=== PATIENT | male | born 2000 | race Caucasian/White ===

== ENCOUNTER 2022-07-30 06:50 | Emergency (ER) | payer OTHER ==
[~2022-07-30] VITALS: Ht 170.2 cm; Wt 70.3 kg
[2022-07-30 07:02] VITALS: BP 119/73
--- NOTE | 2022-07-30 07:06 | NUR ---
TO LOBBY A/W BED AMBULATORY
--- NOTE | 2022-07-30 07:12 | NUR ---
BIB SELF C/O 02/23 GEN ABD PAIN, CHILLS, DIARRHEA, WEAK, FATIQUE STARTED LAST NIGHT. DENIES N/V; SKIN IS PINK/WARM/DRY; ABD SOFT. AAOX4 WITH EVEN AND STEADY GAIT; LUNGS CLEAR BL; HR EVEN AND REGULAR; PT DENIES ANY FEVER, CP, SOB, OR COUGH AT THIS TIME.
--- NOTE | 2022-07-30 07:22 | NUR ---
PT AMB TO BED 5.
--- NOTE | 2022-07-30 07:35 | NUR ---
Dr. Orozco evaluating patient at bedside.
[2022-07-30] MEDS ORDERED: DICYCLOMINE 20 MG/2 ML VIAL IM ONE (08:05)
[2022-07-30] MEDS ORDERED: BEN10 PO (08:33)
[2022-07-30 08:40] VITALS: BP 111/71
--- NOTE | 2022-07-30 08:40 | NUR ---
Patient discharged with v/s stable. Written and verbal after care instructions given. Patient alert, oriented and verbalized understanding of instructions. Ambulatory with steady gait. All questions addressed prior to discharge. ID band removed. Patient advised to follow up with PMD. Rx of Bentyl given. Opportunity to ask questions provided and answered.
--- NOTE | 2022-07-30 08:45 | NUR ---
The patient's care was reviewed and supervised by Deborah Benedict RN.
== END 2022-07-30 08:40 | disposition home or self-care (01) ==
LOC: MED 06:50
DX: R19.7 Diarrhea, unspecified (principal)
CPT/HCPCS: 96372; 99283; J0500

== ENCOUNTER 2022-10-13 08:37 | Emergency (ER) | payer OTHER ==
[~2022-10-13] VITALS: Ht 170.2 cm; Wt 69.4 kg
[~2022-10-13 08:37] MED LIST: BEN10 PO
[2022-10-13 08:47] VITALS: BP 114/66
--- NOTE | 2022-10-13 08:51 | NUR ---
CONGESTION, RUNNY NOSE, HEADACHE, FATIGUE, BODY ACHES, PRODUCTIVE COUGH, SUBJECTIVE FEVERS X 1 WEEK. SICK CONTACT, SISTER, NO RECENT TRAVEL.
--- NOTE | 2022-10-13 09:10 | NUR ---
SEEN AND EVALUATED BY DR DUEÑAS, MSE COMPLETED.
[2022-10-13] MEDS ORDERED: IBUP-2213 PO (09:18)
[2022-10-13] MEDS ORDERED: LORA10TA19 PO (09:18)
[2022-10-13] MEDS ORDERED: FLONAS NS (09:18)
[2022-10-13 09:28] VITALS: BP 114/66
--- NOTE | 2022-10-13 09:28 | NUR ---
Patient discharged with v/s stable. Written and verbal after care instructions given and explained. Patient alert, oriented and verbalized understanding of instructions. Ambulatory with steady gait. All questions addressed prior to discharge. ID band removed. Patient advised to follow up with PMD. Rx of flonase, ibuprofen, loratadine (sent) given. Patient educated on indication of medication including possible reaction and side effects. Opportunity to ask questions provided and answered. work note given
== END 2022-10-13 09:28 | disposition home or self-care (01) ==
LOC: MED 08:37
DX: J01.90 Acute sinusitis, unspecified (principal); Z79.899 Other long term (current) drug therapy
CPT/HCPCS: 99283